=== PATIENT | male | born 1945 | race African-American/Black ===

== ENCOUNTER 2019-08-22 13:46 | Outpatient (CLI) | payer MEDICARE ==
--- NOTE | 2019-08-22 14:25 | XRay Report ---
LEFT TIBIA FIBULA HISTORY: Pain in the lower left leg. COMPARISON: None. TECHNIQUE: 2 views of the left tibia and fibula were obtained. FINDINGS: Bones: No fracture or dislocation. Joint spaces: Moderate osteoarthritis of the knee involving medial and lateral joints. Larger osteoph ytes on the medial side. The ankle joint is normal. Soft tissues: No significant abnormality. Additional findings: None. IMPRESSION: 1. Osteoarthritis of the knee and otherwise negative. Signer Name: Haresh Fuller MD Signed: 08/22/2019 2:21 PM Workstation Name: [id number]
--- NOTE | 2019-08-22 15:09 | Vascular Lab Report ---
DUPLEX DOPPLER LOWER EXTREMITY VEINS, LEFT INDICATION: M79.605) Pain in left leg.. TECHNIQUE: Duplex doppler imaging was performed through the veins of the left lower extremity using venous compr ession and other maneuvers. COMPARISON: No relevant prior imaging study available. FINDINGS: Left Common femoral vein: Negative. Left Superficial femoral vein: Negative. Left Popliteal vein: Negative. Left Calf veins: Negative. Additional findings: None.. IMPRESSION: 1. No sonographic evidence for DVT in the left lower extremity. Signer Name: Jeremias Varma MD Signed: 08/22/2019 3:04 PM Workstation Name: [id number]
== END 2019-08-22 13:47 | disposition home or self-care (01) ==
LOC: VAS 13:46
PROVIDERS: ATTEND Internal Medicine
DX: M79.605 Pain in left leg (principal); E78.00 Pure hypercholesterolemia, unspecified